=== PATIENT | male | born 1955 | race Caucasian/White ===

== ENCOUNTER 2018-08-11 10:58 | Emergency (ER) | payer OTHER ==
[~2018-08-11] VITALS: Ht 167.6 cm; Wt 105.9 kg
[2018-08-11 11:04] VITALS: BP 171/92
--- NOTE | 2018-08-11 11:45 | NUR ---
PT AMBULATED TO ER BED 01
--- NOTE | 2018-08-11 12:00 | NUR ---
c/o watery stools x 2 days----4 episodes a day with abdominal cramping s/p pork grind hx---denies rx----none
[2018-08-11] MEDS ORDERED: DICYCLOMINE HCL LIQUID 10 MG/5 ML UDC PO ONE (12:05)
[2018-08-11] MEDS ORDERED: LEVOFLOXACIN 500 MG TAB PO ONE (12:05)
[2018-08-11] MEDS ORDERED: LOPERAMIDE 2 MG CAP PO ONE (12:05)
[2018-08-11 13:20] VITALS: BP 161/88
--- NOTE | 2018-08-11 13:20 | NUR ---
Patient discharged with v/s stable. Written and verbal after care instructions given and explained. Patient alert, oriented and verbalized understanding of instructions. Ambulatory with steady gait. All questions addressed prior to discharge. ID band removed. Patient advised to follow up with PMD. Rx of imodium given. Patient educated on indication of medication including possible reaction and side effects. Opportunity to ask questions provided and answered.
== END 2018-08-11 13:20 | disposition home or self-care (01) ==
LOC: MED 10:58
DX: R19.7 Diarrhea, unspecified (principal); R10.9 Unspecified abdominal pain
CPT/HCPCS: 96372; 99283